=== PATIENT | female | born 1950 | race Caucasian/White ===

== ENCOUNTER → 2018-12-15 | Outpatient (CLI) | payer MEDICARE, BC, OTHER ==
--- NOTE | 2018-12-15 15:52 | RADIOLOGY REPORT (SQ) ---
EXAM DESCRIPTION: FOOT RIGHT COMPLETE COMPLETED DATE/TIME: 12/15/2018 3:43 pm REASON FOR STUDY: M84.377A STRESS FRACTURE, RIGHT TOE(S), INIT ENCNTR FOR FRACTURE M84.377A STRESS FRACTURE, RIGHT TOE(S), INIT ENCNTR FOR FRAC COMPARISON: None. NUMBER OF VIEWS: Three views. TECHNIQUE: AP, lateral and oblique radiographic images acquired of the right foot. LIMITATIONS: None. FINDINGS: MINERALIZATION: Normal. BONES: There is a transverse fracture through the base of the 5th metatarsal. The fracture is commin uted. The fracture does appear to extend through the articular surface. JOINTS: No effusions. SOFT TISSUES: No soft tissue swelling. No foreign body. OTHER: Small calcaneal osteophytes. IMPRESSION: Comminuted mildly displaced fracture at the base of the 5th metatarsal. The fracture do es appear to extend through the articular surface on the oblique view. TECHNICAL DOCUMENTATION: JOB ID: [id number] [employer]- All Rights Reserved Reading location - IP/workstation name: [email or web address]
== END ==
LOC: RAD 15:18
PROVIDERS: ATTEND Podiatrist Foot & Ankle Surgery
DX: M84.377A Stress fracture, right toe(s), initial encounter for fracture (principal)

== ENCOUNTER → 2019-01-07 | Outpatient (CLI) | payer MEDICARE, BC, OTHER ==
--- NOTE | 2019-01-07 14:38 | RADIOLOGY REPORT (SQ) ---
EXAM DESCRIPTION: FOOT RIGHT COMPLETE COMPLETED DATE/TIME: 01/07/2019 2:22 pm REASON FOR STUDY: M84.377D STRESS FRACTURE, RIGHT TOE(S), SUBS FOR FX W ROUTN HEAL M84.377D STRESS FRACTURE, RIGHT TOE(S), SUBS FOR FX W ROUTN COMPARISON: None. NUMBER OF VIEWS: Three views. TECHNIQUE: AP, lateral and oblique radiographic images acquired of the right foot. LIMITATIONS: None. FINDINGS: MINERALIZATION: Normal. BONES: There is a nonunited transverse fracture of the base of the 5th metatarsal. Dorsal and planta r calcaneal spurs are present. JOINTS: No effusions. SOFT TISSUES: No soft tissue swelling. No foreign body. OTHER: No other significant finding. IMPRESSION: Nonunited fracture of the base of the 5th metatarsal. Calcaneal spurs. TECHNICAL DOCUMENTATION: JOB ID: [id number] [employer]- All Rights Reserved Reading location - IP/workstation name: [email or web address]
== END ==
LOC: RAD 14:02
PROVIDERS: ATTEND Podiatrist Foot & Ankle Surgery
DX: M84.377D Stress fracture, right toe(s), subsequent encounter for fracture with routine healing (principal); M77.31 Calcaneal spur, right foot

== ENCOUNTER → 2019-02-17 | Outpatient (CLI) | payer MEDICARE, BC, OTHER ==
--- NOTE | 2019-02-17 17:34 | RADIOLOGY REPORT (SQ) ---
EXAM DESCRIPTION: FOOT RIGHT COMPLETE COMPLETED DATE/TIME: 02/17/2019 3:11 pm REASON FOR STUDY: M84.377D STRESS FRACTURE, RIGHT TOE(S), SUBS FOR FX W ROUTN HEAL M84.377D STRESS FRACTURE, RIGHT TOE(S), SUBS FOR FX W ROUTN COMPARISON: 01/07/2019 EXAM PARAMETERS: NUMBER OF VIEWS: Three views. TECHNIQUE: AP, lateral and oblique radiographic images acquired of the right foot. LIMITATIONS: None. FINDINGS: MINERALIZATION: Normal. BONES: No acute fracture or dislocation. 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 No worrisome bone lesions. JOINTS: No effusion. SOFT TISSUES: No significant soft tissue swelling. No radiopaque foreign body. OTHER: No other significant finding. IMPRESSION: No acute fracture or dislocation. TECHNICAL DOCUMENTATION: JOB ID: [id number] [employer]- All Rights Reserved Reading location - IP/workstation name: [email or web address]
== END ==
LOC: RAD 14:19
PROVIDERS: ATTEND Podiatrist Foot & Ankle Surgery
DX: M84.377D Stress fracture, right toe(s), subsequent encounter for fracture with routine healing (principal)